=== PATIENT | male | born 2000 | race Two or more races ===

== ENCOUNTER 2021-08-13 17:36 | Emergency (ER) | payer BC, OTHER ==
[~2021-08-13] VITALS: Ht 188 cm; Wt 77.1 kg
[2021-08-13] MEDS ORDERED: SODIUM CHLORIDE 0.9% 1,000 ML IV ONE (18:00)
[2021-08-13 20:12] VITALS: BP 122/74
== END 2021-08-13 20:14 | disposition home or self-care (01) ==
LOC: EDBD 17:36 → ER 17:36
DX: T50.901A Poisoning by unspecified drugs, medicaments and biological substances, accidental (unintentional), initial encounter (principal); R41.82 Altered mental status, unspecified; F12.10 Cannabis abuse, uncomplicated; R07.89 Other chest pain; Y92.89 Other specified places as the place of occurrence of the external cause
CPT/HCPCS: 93005; 96360; 99283; J7030

== ENCOUNTER 2023-06-21 01:08 | Emergency (ER) | payer SELFPAY ==
[~2023-06-21] VITALS: Ht 190.5 cm; Wt 81.7 kg
[2023-06-21 01:23] VITALS: BP 120/79; PULSE 111; RESP 18; O2SAT 99
== END 2023-06-21 01:10 | disposition left against medical advice (07) ==
LOC: ER 01:08 → EDBD 01:08 → ER 01:10
DX: T50.991A Poisoning by other drugs, medicaments and biological substances, accidental (unintentional), initial encounter (principal); Z53.21 Procedure and treatment not carried out due to patient leaving prior to being seen by health care provider; Y92.89 Other specified places as the place of occurrence of the external cause